=== PATIENT | female | born 1945 | race Native Hawaiian/Other Pacific Islander ===

== ENCOUNTER 2017-07-26 15:45 | Inpatient (IN) | payer MEDICARE ==
--- NOTE | 2017-07-26 16:46 | C.PDOC ---
Time Seen by Provider: 07/26/17 16:25 Chief Complaint (Nursing): Chest Pain Past Medical History Vital Signs: Last Vital Signs Temp 97.8 F 07/26/17 15:50 Pulse 105 H 07/26/17 15:50 Resp 18 07/26/17 15:50 BP 152/89 H 07/26/17 15:50 Pulse Ox 100 07/26/17 15:50 - Medical History PMH: HTN, Hypercholesterolemia - Social History Hx Alcohol Use: No Hx Substance Use: No - Immunization History Hx Tetanus Toxoid Vaccination: No Hx Influenza Vaccination: No Hx Pneumococcal Vaccination: No ED Course And Treatment O2 Sat by Pulse Oximetry: 100 Disposition - Disposition
--- NOTE | 2017-07-26 16:46 | C.PDOC ---
History Of Present Illness 72 yr old female referred to ER by her PMD, comes in with complaints of intermittent palpitations associated with near syncope for the past several months. Patient also reports of general weakness. Currently patient is asymptomatic, denies fever, chest pain, SOB, nausea, vomiting or headache. REFERRED BY PMD. INTERMIT PALPITATIONS ASSOC NEAR SYNCOPE X SEV MONTHS. CURRENTLY ASYMPT. +ASSOC GEN WEAKNESS. NO CP. EXAM NAD LUNGS NEG CV IRREG REG REMAINDER NEG Time Seen by Provider: 07/26/17 16:25 Chief Complaint (Nursing): Chest Pain History Per: Patient History/Exam Limitations: no limitations Onset/Duration Of Symptoms: Intermittent Episodes Past Medical History Reviewed: Historical Data, Nursing Documentation, Vital Signs Vital Signs: Last Vital Signs Temp 97.8 F 07/26/17 15:50 Pulse 80 07/26/17 16:55 Resp 18 07/26/17 15:50 BP 141/95 H 07/26/17 16:55 Pulse Ox 100 07/26/17 17:19 - Medical History PMH: HTN, Hypercholesterolemia Family History: States: No Known Family Hx - Social History Hx Alcohol Use: No Hx Substance Use: No - Immunization History Hx Tetanus Toxoid Vaccination: No Hx Influenza Vaccination: No Hx Pneumococcal Vaccination: No Review Of Systems Except As Marked, All Systems Reviewed And Found Negative. Constitutional: Positive for: Weakness (Generalized). Negative for: Fever Cardiovascular: Positive for: Palpitations. Negative for: Chest Pain Respiratory: Negative for: Shortness of Breath Gastrointestinal: Negative for: Nausea, Vomiting Neurological: Negative for: Headache Physical Exam - Physical Exam Appears: Non-toxic, No Acute Distress Skin: Warm, Dry, No Rash Head: Atraumatic, Normacephalic Cardiovascular: Rhythm Regular, Rhythm Irregular Respiratory: Normal Breath Sounds, No Rales, No Rhonchi, No Stridor, No Wheezing Extremity: Normal ROM, No Swelling Neurological/Psych: Oriented x3, Normal Speech, Normal Motor, Normal Sensation ED Course And Treatment - Laboratory Results Result Diagrams: 07/26/17 17:14 07/26/17 17:14 ECG: Interpreted By Me ECG Rhythm: Atrial Fibrillation Rate From EC (BPM) O2 Sat by Pulse Oximetry: 100 (RA) Pulse Ox Interpretation: Normal () - Radiology CXR: Interpreted by Me CXR Interpretation: Yes: No Acute Disease Progress - Re-Evaluation Re-evaluation Note: 07/26/17 17:02 D/W DR Juan TEE, WILL ADMIT. CONSULT DR MARCH - Data Reviewed Data Reviewed: Lab, Diagnostic imaging, EKG, Old records Medical Decision Making Medical Decision Making: PLAN: * CXR * EKG * Troponin * CBC * CMP * Lovenox SC Disposition Counseled Patient/Family Regarding: Studies Performed, Diagnosis - Disposition Disposition: HOSPITALIZED Disposition Time: 17:42 Condition: STABLE Forms: [facility] (German) - POA Present On Arrival: None - Clinical Impression Clinical Impression: New onset atrial fibrillation - Scribe Statement The provider has reviewed the documentation as recorded by the Judeibe Brandy Carpio Provider Attestation: All medical record entries made by the Scribe were at my direction and personally dictated by me. I have reviewed the chart and agree that the record accurately reflects my personal performance of the history, physical exam, medical decision making, and the department course for this patient. I have also personally directed, reviewed, and agree with the discharge instructions and disposition. Decision To Admit - Pt Status Changed To: Hospital Disposition Of: Inpatient - Admit Certification Admit to Inpatient:: After my assessment, the patient will require hospitalization for at least two midnights. This is because of the severity of symptoms shown, intensity of services needed, and/or the medical risk in this patient being treated as an outpatient. - InPatient: Physician Admission Certification: I certify that this patient requires 2 or more midnights of care for the following reason:: see note - . Bed Request Type: Telemetry Admitting Physician: Desmond Tee Patient Diagnosis: New onset atrial fibrillation
[2017-07-26] MEDS ORDERED: Enoxaparin 30 mg Syringe SC STA (16:53)
[2017-07-26 17:26] LABS: BASO # 0.1 K/uL (0.0-0.2); EOS # 0.2 K/uL (0.0-0.7); EOS % 2.5 % (0.0-4.0); HEMATOCRIT 42.4 % (34.0-47.0); LYMPH # 2.4 K/uL (1.0-4.3); MEAN CELL VOLUME 88.4 fL (81.0-99.0); MEAN CORPUSCULAR HEMOGLOBIN 30.1 pg (27.0-31.0); MEAN PLATELET VOLUME 7.4 fL (7.2-11.7); MONO # 0.5 K/uL (0.0-0.8); MONO % 8.1 % (0.0-10.0); NRBC % 0.1 % (0.0-2.0); RED CELL DISTRIBUTION WIDTH 13.1 % (11.5-14.5); WHITE BLOOD COUNT 6.5 K/uL (4.8-10.8)
[2017-07-26 17:34] LABS: ALKALINE PHOSPHATASE 125 U/L (38-126); ALT/SGPT 57 U/L (9-52); AST/SGOT 39 U/L (14-36); BILIRUBIN,TOTAL 0.7 mg/dL (0.2-1.3); BLOOD UREA NITROGEN 19 mg/dL (7-17); CALCIUM 8.6 mg/dl (8.6-10.4); CARBON DIOXIDE 28 mmol/L (22-30); CHLORIDE 104 mmol/L (98-107); GFR AFRICAN-AMERICAN > 60; GLUCOSE,RANDOM 76 mg/dL (65-105); POTASSIUM 4.2 mmol/L (3.6-5.2); SODIUM 140 mmol/L (132-148); TOTAL PROTEIN 8.9 g/dL (6.3-8.3)
[2017-07-26 17:38] LABS: ALB/GLOB RATIO 0.9 (1.0-2.1)
[2017-07-26] MEDS ORDERED: Enoxaparin 80 mg Syringe SC STA (17:38)
--- NOTE | 2017-07-26 17:40 | RAD ---
HISTORY: AFIB COMPARISON: None available. TECHNIQUE: Chest PA and lateral FINDINGS: Examination limited by habitus. LUNGS: Minimal atelectasis, left lung base. No focal consolidation. Please note that chest x-ray has limited sensitivity for the detection of pulmonary masses. PLEURA: No significant pleural effusion identified. No definite pneumothorax . CARDIOVASCULAR: Heart size appears top normal. Atherosclerotic calcifications of the aorta. OSSEOUS STRUCTURES: Degenerative changes. VISUALIZED UPPER ABDOMEN: Unremarkable. OTHER FINDINGS: None. IMPRESSION: Minimal atelectasis, left lung base.
[2017-07-26] MEDS ORDERED: Enoxaparin 80 mg Syringe ONE (17:52)
[2017-07-26] MEDS ORDERED: Home Med 1 UNIT (Atorvastatin [Lipitor] 10 MG) PO SCH (22:45)
--- NOTE | 2017-07-27 09:26 | CP.PCM.HP ---
History of Present Illness - History of Present Illness History of Present Illness: CC: Dizzy/ near syncope 89 y/o femalw wirt Eczema, HTN, & Hyperlipidemia. Patient noted occ dizziness x mths and one episode that she almost pass out. Pt seen in office and noted in At fib. Patient admitted. Present on Admission - Present on Admission Any Indicators Present on Admission: Yes History of DVT/PE: No History of Uncontrolled Diabetes: No Review of Systems - Review of Systems Systems not reviewed;Unavailable: Acuity of Condition - Constitutional Constitutional: absent: Excessive Sweating, Increased Appetite, Night Sweats, Snoring, Sleep Apnea, Weight Loss - EENT Eyes: absent: Change in Vision, Loss of Peripheral Vision, Sees Flashes, Loss of Vision Ears: Dizziness. absent: Ear Discharge, Disequilibrium Nose/Mouth/Throat: absent: Nasal Congestion, Change in Voice, Dysphagia - Cardiovascular Cardiovascular: Palpitations, Pedal Edema, Rapid Heart Rate. absent: Chest Pain at Rest, Dyspnea, Dyspnea on Exertion, Edema, Leg Edema, Orthopnea - Respiratory Respiratory: Cough. absent: Hemoptysis, Change in Mucous Color - Gastrointestinal Gastrointestinal: absent: Abdominal Pain, Change in Stool Character, Diarrhea, Dyspepsia - Genitourinary Genitourinary: Nocturia. absent: Urinary Urgency, Freq UTI, Bladder Distension - Musculoskeletal Musculoskeletal: absent: Abnormal Gait, Atrophy, Back Pain, Loss of Height, Myalgias, Tingling Past Patient History - Past Social History Smoking Status: Never Smoked - CARDIAC Hx Hypercholesterolemia: Yes Hx Hypertension: Yes - MUSCULOSKELETAL/RHEUMATOLOGICAL Hx Falls: No - PSYCHIATRIC Hx Substance Use: No - SURGICAL HISTORY Hx Surgeries: Yes Hx Section: Yes (X1) - ANESTHESIA Hx Anesthesia: Yes Hx Anesthesia Reactions: No Meds Allergies/Adverse Reactions: Allergies Allergy/AdvReac Type Severity Reaction Status Date / Time desai Allergy Severe ITCHING Verified 07/27/17 01:19 egg Allergy Severe ITCHING Verified 07/27/17 01:19 shellfish derived Allergy Severe ITCHING Verified 07/27/17 01:19 celecoxib [From Celebrex] Allergy Intermediate ITCHING Verified 07/27/17 01:19 Penicillins Allergy Mild ITCHING Verified 07/27/17 01:19 NUTS Allergy Severe ITCHING Uncoded 07/27/17 01:19 Physical Exam - Constitutional Appears: No Acute Distress - Eye Exam Eye Exam: Normal appearance - ENT Exam ENT Exam: Mucous Membranes Moist - Neck Exam Neck exam: Positive for: Full Rom. Negative for: Lymphadenopathy, Thyromegaly - Respiratory Exam Respiratory Exam: Clear to Auscultation Bilateral. absent: Rhonchi, Wheezes, Respiratory Distress - Cardiovascular Exam Cardiovascular Exam: +S1, +S2. absent: Gallop, REGULAR RHYTHM - GI/Abdominal Exam GI & Abdominal Exam: Soft. absent: Rebound, Tenderness - Extremities Exam Extremities exam: Positive for: full ROM, normal capillary refill. Negative for : calf tenderness, joint swelling Results - Vital Signs Recent Vital Signs: Last Vital Signs Temp 98.1 F 07/27/17 09:05 Pulse 97 H 07/27/17 09:05 Resp 20 07/27/17 09:05 BP 144/76 07/27/17 09:05 Pulse Ox 97 07/27/17 09:05 - Labs Result Diagrams: 07/26/17 17:14 07/26/17 17:14 Labs: Laboratory Results - last 24 hr 07/26/17 07/26/17 07/26/17 17:14 17:14 17:14 WBC 6.5 RBC 4.80 Hgb 14.4 Hct 42.4 MCV 88.4 MCH 30.1 MCHC 34.0 RDW 13.1 Plt Count 165 MPV 7.4 Neut % (Auto) 51.4 Lymph % (Auto) 37.0 [place] % (Auto) 8.1 Eos % (Auto) 2.5 Baso % (Auto) 1.0 Neut # 3.4 Lymph # 2.4 [place] # 0.5 Eos # 0.2 Baso # 0.1 PT 11.2 INR 1.0 APTT 33 Sodium 140 Potassium 4.2 Chloride 104 Carbon Dioxide 28 Anion Gap 13 BUN 19 H Creatinine 0.7 Est GFR ( Amer) > 60 Est GFR (Non-Af Amer) > 60 Random Glucose 76 Calcium 8.6 Total Bilirubin 0.7 AST 39 H ALT 57 H Alkaline Phosphatase 125 Troponin I < 0.0120 Total Protein 8.9 H Albumin 4.3 Globulin 4.6 H Albumin/Globulin Ratio 0.9 L TSH 3rd Generation 1.20 - EKG Data EKG Interpreted by: Myself - EKG Data When Compared to Previous EKG: Significant Changes (At Fibrillation, no ischemia ) Assessment & Plan - Assessment and Plan (Free Text) Assessment: New Onset At fib HTN, Hyperlipidemia For anticoagulation 2-$ echo done control BP
[2017-07-27] MEDS: Enoxaparin 60 mg Syringe SC SCH ×2 (10:54→22:35)
[2017-07-27 11:49] LABS: INR 1.1
--- NOTE | 2017-07-27 21:27 | CARD ---
APPROVED REPORT EXAM: Two-dimensional and M-mode echocardiogram with Doppler and color Doppler. Other Information Quality : GoodRhythm : INDICATION Atrial Fibrillation Cardiac Disease: CAD Chest Pain Syncope Palpitations RISK FACTORS Hypertension 2D DIMENSIONS IVSd0.9 (0.7-1.1cm)LVDd4.1 (3.9-5.9cm) PWd1.0 (0.7-1.1cm)LVDs2.3 (2.5-4.0cm) FS (%) 42.8 %LVEF (%)74.4 (>50%) M-Mode DIMENSIONS RVDd2.95 (2.1-3.2cm)Left Atrium (MM)4.12 (2.5-4.0cm) IVSd0.90 (0.7-1.1cm)Aortic Root2.32 (2.2-3.7cm) LVDd4.13 (4.0-5.6cm)Aortic Cusp Exc.1.66 (1.5-2.0cm) PWd1.01 (0.7-1.1cm)FS (%) 37 % LVDs2.60 (2.0-3.8cm)LVEF (%)67 (>50%) Mitral Valve MV E Dbxooyvf714.4cm/sE/A ratio0.0 TDI E/Lateral E'0.0E/Medial E'0.0 Tricuspid Valve TR Peak Puzqajcr113gj/sTR Peak Gr.67orCuBUYG72cxVr LEFT VENTRICLE The left ventricle is normal size. There is normal left ventricular wall thickness. The left ventricular function is normal. The left ventricular ejection fraction is within the normal range. There is normal LV segmental wall motion. RIGHT VENTRICLE The right ventricle is normal size. There is normal right ventricular wall thickness. The right ventricular systolic function is normal. ATRIA The left atrium is borderline dilated. AORTIC VALVE The aortic valve is severely thickened MITRAL VALVE Mitral regurgitation is mild to moderate. PULMONIC VALVE There is trace pulmonic valvular regurgitation. <Conclusion> The left ventricle is normal size. There is normal left ventricular wall thickness. The left ventricular function is normal. The left ventricular ejection fraction is within the normal range. There is normal LV segmental wall motion. The aortic valve is severely thickened Mitral regurgitation is mild to moderate.
--- NOTE | 2017-07-27 21:50 | CARD ---
APPROVED REPORT EKG Measurement Heart [id number] <Conclusion> Atrial fibrillation Abnormal ECG
--- NOTE | 2017-07-28 05:42 | CP.PCM.CON ---
History of Present Illness - History of Present Illness History of Present Illness: CC: palpitations chst pain HPI: 80 y/o [place] woman w/ hx of Eczema, HTN, & Hyperlipidemia. Patient noted occ dizziness for a few months with a near syncopal episode event. Pt was seen in office of PMD for mi-sternal chest pain radiating to right shoulder and back. EKG revealed Atrial fib. Review of Systems - Constitutional Constitutional: As Per HPI - EENT Nose/Mouth/Throat: absent: Epistaxis - Cardiovascular Cardiovascular: Chest Pain, Palpitations - Respiratory Respiratory: Dyspnea on Exertion - Gastrointestinal Gastrointestinal: absent: Abdominal Pain - Musculoskeletal Musculoskeletal: absent: Abnormal Gait - Neurological Neurological: Syncope. absent: Abnormal Gait Past Patient History - Past Social History Smoking Status: Never Smoked - CARDIAC Hx Hypercholesterolemia: Yes Hx Hypertension: Yes - MUSCULOSKELETAL/RHEUMATOLOGICAL Hx Falls: No - PSYCHIATRIC Hx Substance Use: No - SURGICAL HISTORY Hx Surgeries: Yes Hx Section: Yes (X1) - ANESTHESIA Hx Anesthesia: Yes Hx Anesthesia Reactions: No Meds Allergies/Adverse Reactions: Allergies Allergy/AdvReac Type Severity Reaction Status Date / Time desai Allergy Severe ITCHING Verified 07/27/17 01:19 egg Allergy Severe ITCHING Verified 07/27/17 01:19 shellfish derived Allergy Severe ITCHING Verified 07/27/17 01:19 celecoxib [From Celebrex] Allergy Intermediate ITCHING Verified 07/27/17 01:19 Penicillins Allergy Mild ITCHING Verified 07/27/17 01:19 NUTS Allergy Severe ITCHING Uncoded 07/27/17 01:19 - Medications Medications: Current Medications Enoxaparin Sodium (Lovenox) 60 mg SC Q12 [facility] Last Admin: 07/27/17 22:35 Dose: 60 mg Hydrochlorothiazide (Microzide) 12.5 mg PO DAILY [facility] Last Admin: 07/27/17 10:54 Dose: 12.5 mg Losartan Potassium (Cozaar) 100 mg PO DAILY [facility] Last Admin: 07/27/17 10:54 Dose: 100 mg Metoprolol Tartrate (Lopressor) 50 mg PO BIDCC [facility] Last Admin: 07/27/17 22:35 Dose: 50 mg Rosuvastatin Calcium (Crestor) 5 mg PO HS [facility] Last Admin: 07/27/17 22:35 Dose: 5 mg Physical Exam - Constitutional Appears: Non-toxic - Head Exam Head Exam: NORMAL INSPECTION - Eye Exam Eye Exam: absent: Scleral icterus Pupil Exam: NORMAL ACCOMODATION - ENT Exam ENT Exam: Mucous Membranes Moist - Neck Exam Neck exam: Positive for: Full Rom - Respiratory Exam Respiratory Exam: NORMAL BREATHING PATTERN - Cardiovascular Exam Cardiovascular Exam: REGULAR RHYTHM - GI/Abdominal Exam GI & Abdominal Exam: Soft. absent: Tenderness - Neurological Exam Neurological exam: Alert, Oriented x3 Results - Vital Signs Recent Vital Signs: Last Vital Signs Temp 97.6 F 07/28/17 04:46 Pulse 79 07/28/17 04:46 Resp 20 07/28/17 04:46 BP 100/68 07/28/17 04:46 Pulse Ox 96 07/28/17 04:46 - Labs Result Diagrams: 07/26/17 17:14 07/26/17 17:14 Labs: Laboratory Results - last 24 hr 07/26/17 07/27/17 17:14 11:19 PT 12.1 INR 1.1 Sodium 140 Potassium 4.2 Chloride 104 Carbon Dioxide 28 Anion Gap 13 BUN 19 H Creatinine 0.7 Est GFR ( Amer) > 60 Est GFR (Non-Af Amer) > 60 Random Glucose 76 Calcium 8.6 Total Bilirubin 0.7 AST 39 H ALT 57 H Alkaline Phosphatase 125 Troponin I < 0.0120 Total Protein 8.9 H Albumin 4.3 Globulin 4.6 H Albumin/Globulin Ratio 0.9 L TSH 3rd Generation 1.20 Assessment & Plan - Assessment and Plan (Free Text) Assessment: Chest pain - r/o CAD New onset Afib HTN Plan: ECHO Lexiscan Anticoagulation
[2017-07-28] MEDS ORDERED: Aminophylline 25 mg/ml Inj ONE (07:09)
--- NOTE | 2017-07-28 09:39 | CP.PCM.PN ---
Subjective - Date & Time of Evaluation Date of Evaluation: 07/28/17 Time of Evaluation: 09:30 - Subjective Subjective: Pt no complain; no cough, no SOB, no CP On Stress test scan Objective - Vital Signs/Intake and Output Vital Signs (last 24 hours): Temp Pulse Resp BP Pulse Ox 98.4 F 81 20 128/80 95 07/28/17 08:27 07/28/17 08:27 07/28/17 08:27 07/28/17 08:27 07/28/17 08:27 - Medications Medications: Current Medications Apixaban (Eliquis) 5 mg PO BID [facility] Enoxaparin Sodium (Lovenox) 60 mg SC Q12 [facility] Last Admin: 07/27/17 22:35 Dose: 60 mg Hydrochlorothiazide (Microzide) 12.5 mg PO DAILY [facility] Last Admin: 07/27/17 10:54 Dose: 12.5 mg Losartan Potassium (Cozaar) 100 mg PO DAILY [facility] Last Admin: 07/27/17 10:54 Dose: 100 mg Metoprolol Tartrate (Lopressor) 50 mg PO BIDCC [facility] Last Admin: 07/27/17 22:35 Dose: 50 mg Rosuvastatin Calcium (Crestor) 5 mg PO HS [facility] Last Admin: 07/27/17 22:35 Dose: 5 mg - Labs Labs: 07/26/17 17:14 07/26/17 17:14 PT 12.1 SECONDS (9.7-12.2) 07/27/17 11:19 INR 1.1 07/27/17 11:19 APTT 33 SECONDS (21-34) 07/26/17 17:14 - Constitutional Appears: In Acute Distress - Eye Exam Eye Exam: Normal appearance - ENT Exam ENT Exam: Mucous Membranes Moist - Neck Exam Neck Exam: Full ROM. absent: Lymphadenopathy, Normal Inspection - Respiratory Exam Respiratory Exam: Clear to Ausculation Bilateral. absent: Rales, Rhonchi, Wheezes - Cardiovascular Exam Cardiovascular Exam: +S1, +S2. absent: Gallop, REGULAR RHYTHM, JVD - GI/Abdominal Exam GI & Abdominal Exam: Soft. absent: Tenderness - Extremities Exam Extremities Exam: Full ROM, Normal Capillary Refill. absent: Calf Tenderness, Joint Swelling, Pedal Edema Assessment and Plan - Assessment and Plan (Free Text) Assessment: New Onset AF; HTN; Hyperlipidemia Cont work up/ meds for anticoagulation
[2017-07-28] MEDS ORDERED: Enoxaparin 40 mg Syringe SC SCH (10:00)
[2017-07-28 11:46] LABS: INR 1.2
[2017-07-28] MEDS: Enoxaparin 60 mg Syringe SC SCH ×2 (12:17→21:44)
--- NOTE | 2017-07-29 00:08 | CARD ---
APPROVED REPORT Protocol: LEXISCAN Test Type: LEXISCAN STRESS Test Indications: A FIB Target HR: 150 bpm Resting ECG: atrial fibrillation Resting Heart Rate: 90 bpm Resting Blood Pressure: 132/80mmHg submaximum (85%): 128 bpm TEST SUMMARY [id number]:02..1.086/.0. PREINFSNHYPERV.07:[id number]/80.0. INFUSIONDOSE 100:300.00.01.086/.0. [id number]:[id number]/80.0. PROCEDURE Pharmacologic stress testing was performed using 0.4mg per 5ml of regadenoson given intravenously over 7-10 seconds. Reversal agent aminophyline 100 mg, given intravenously for Headache. POST EXERCISE Reason for Termination: Protocol Completed Target HR: No Max HR: 86 bpm 80% of Maximum Predicted HR: 150 bpm Exercise duration: 00:30 min:sec, 0 Stage Exercise capacity: 1.0METs Max Blood Pressure: 132/80mmHg Blood Pressure response to exercise: normal resting BP - appropriate response Heart Rate response to exercise: appropriate Chest Pain: No, none Angina index: 0 Arrhythmia: Yes, atrial fibrillation ST Change: No, none from baseline Deviation: 0 mm INTERPRETATION Stress EKG Conclusion: NEGATIVE LEXISCAN STRESS TEST NORMAL BP RESPONSE TO LEXISCAN NUCLEAR STUDIES TO BE READ SEPARATELY EXAM: Myocardial Perfusion STRESS/REST Imaging Protocol The imaging protocol used to acquire images was Stress Tc-99m/rest Tc-99m 1 day Stress Spect myocardial perfusion imaging was performed in supine position 40 minutes following the injection of 13.2 mCi of Tc-99 Myoview. Gated Rest Spect was performed 40 minutes after intravenous 32.6 mCi Tc-99 Myoview injection. The images were gated to evaluate regional wall motion and calculate ventricular ejection fraction.Images were reconstructed using backfilter projection method in short horizontal and verticle long axis. Spect slices were generated. RESTING DATA EDV44.95wrQB5.90L/min ESV3.00mlMyocardial Mass90.00g Av. Heart Rate72.00bpm EF93.00% STRESS DATA EDV42.34onNM3.90L/min ESV8.00mlMyocardial Mass91.00g EF81.00% Regional WT score at stress:3.00 Regional WM score at stress:0.00 Summed WT score at stress:21.00 Av. Heart Rate85.00bpmSummed WM score at stress:0.00 LV Perf. Quant 17 Seg. SSS0.00 17 Seg. SRS1.00 17 Seg. SDS0.00 Stress Defect Extent (% LAD)0.00Rest Defect Extent (% LAD)0.00Rev. Defect Extent (% LAD)0.00 Stress Defect Extent (% LCX)0.00Rest Defect Extent (% LCX)11.30Rev. Defect Extent (% LCX)0.00 Stress Defect Extent (% RCA)0.00Rest Defect Extent (% RCA)0.00Rev. Defect Extent (% RCA)0.00 Stress Defect Extent (% DANYELL)0.00Rest Defect Extent (% DANYELL)2.00Rev. Defect Extent (% DANYELL)0.00 IMPRESSION Normal Myocardial Perfusion exercise stress study Left Ventricle LV Size/Shape: The left ventricle is normal size. LV Function:Left ventricle systolic function is normal. The Ejection Fraction is >70%. Regional Wall Motion:There is normal left ventricular wall motion. Metabolism/Perfusion Defects: There is no scan evidence of reversible ischemia noted. There are no perfusion/metabolism defects. Conclusion 1. There is no scan evidence of reversible ischemia noted. 2. Left ventricle systolic function is normal. 3. The Ejection Fraction is >70%.
[2017-07-29] MEDS: Enoxaparin 60 mg Syringe SC SCH (09:58)
[2017-07-29 16:22] VITALS: BP 124/76; PULSE 81; RESP 18; TEMP 98.7; O2SAT 98
--- NOTE | 2017-07-29 17:42 | CP.PCM.DIS ---
Provider - Provider Date of Admission: 07/26/17 17:43 Attending physician: Desmond Carrion MD Time Spent in preparation of Discharge (in minutes): 25 Diagnosis - Discharge Diagnosis (1) New onset atrial fibrillation Status: Acute (2) HTN (hypertension) Status: Chronic (3) Hyperlipemia Status: Chronic Hospital Course - Lab Results Lab Results: Most Recent Lab Values WBC 6.5 K/uL (4.8-10.8) 07/26/17 17:14 RBC 4.80 Mil/uL (3.80-5.20) 07/26/17 17:14 Hgb 14.4 g/dL (11.0-16.0) 07/26/17 17:14 Hct 42.4 % (34.0-47.0) 07/26/17 17:14 MCV 88.4 fL (81.0-99.0) 07/26/17 17:14 MCH 30.1 pg (27.0-31.0) 07/26/17 17:14 MCHC 34.0 g/dL (33.0-37.0) 07/26/17 17:14 RDW 13.1 % (11.5-14.5) 07/26/17 17:14 Plt Count 165 K/uL (130-400) 07/26/17 17:14 MPV 7.4 fL (7.2-11.7) 07/26/17 17:14 Neut % (Auto) 51.4 % (50.0-75.0) 07/26/17 17:14 Lymph % (Auto) 37.0 % (20.0-40.0) 07/26/17 17:14 [place] % (Auto) 8.1 % (0.0-10.0) 07/26/17 17:14 Eos % (Auto) 2.5 % (0.0-4.0) 07/26/17 17:14 Baso % (Auto) 1.0 % (0.0-2.0) 07/26/17 17:14 Neut # 3.4 K/uL (1.8-7.0) 07/26/17 17:14 Lymph # 2.4 K/uL (1.0-4.3) 07/26/17 17:14 [place] # 0.5 K/uL (0.0-0.8) 07/26/17 17:14 Eos # 0.2 K/uL (0.0-0.7) 07/26/17 17:14 Baso # 0.1 K/uL (0.0-0.2) 07/26/17 17:14 PT 24.0 SECONDS (9.7-12.2) H D 07/29/17 11:07 INR 2.0 D 07/29/17 11:07 APTT 33 SECONDS (21-34) 07/26/17 17:14 Sodium 140 mmol/L (132-148) 07/26/17 17:14 Potassium 4.2 mmol/L (3.6-5.2) 07/26/17 17:14 Chloride 104 mmol/L (98-107) 07/26/17 17:14 Carbon Dioxide 28 mmol/L (22-30) 07/26/17 17:14 Anion Gap 13 (10-20) 07/26/17 17:14 BUN 19 mg/dL (7-17) H 07/26/17 17:14 Creatinine 0.7 mg/dL (0.7-1.2) 07/26/17 17:14 Est GFR ( Amer) > 60 07/26/17 17:14 Est GFR (Non-Af Amer) > 60 07/26/17 17:14 Random Glucose 76 mg/dL (65-105) 07/26/17 17:14 Calcium 8.6 mg/dl (8.6-10.4) 07/26/17 17:14 Total Bilirubin 0.7 mg/dL (0.2-1.3) 07/26/17 17:14 AST 39 U/L (14-36) H 07/26/17 17:14 ALT 57 U/L (9-52) H 07/26/17 17:14 Alkaline Phosphatase 125 U/L (38-126) 07/26/17 17:14 Troponin I < 0.0120 ng/mL (0.00-0.120) 07/26/17 17:14 Total Protein 8.9 g/dL (6.3-8.3) H 07/26/17 17:14 Albumin 4.3 g/dL (3.5-5.0) 07/26/17 17:14 Globulin 4.6 gm/dL (2.2-3.9) H 07/26/17 17:14 Albumin/Globulin Ratio 0.9 (1.0-2.1) L 07/26/17 17:14 TSH 3rd Generation 1.20 mIU/L (0.46-4.68) 07/26/17 17:14 - Hospital Course Hospital Course: Admitted telemetry. Started on Coreg and levonox. ECHO and Stress done done. Seen by [facility] Dr. Katz. Advised to d/c home on Coumadin. - Date & Time of H&P Date of H&P: 07/29/17 Time of H&P: 17:42 Discharge Exam - Head Exam Head Exam: NORMAL INSPECTION Discharge Plan - Follow Up Plan Condition: STABLE Disposition: HOME/ ROUTINE Instructions: Warfarin (By mouth), Atrial Fibrillation (DC), Heart Healthy Diet (DC) Additional Instructions: Follow up in the office after 1 week for blood test. Continue medications at home. No Plavix and Aspirin. Prescribed Coumadin 5 mg PO daily Referrals: Wu Pereira MD [Staff Provider] - Desmond Carrion MD [Staff Provider] -
== END 2017-07-29 18:29 | disposition home or self-care (01) | DRG 310 ==
LOC: C.ER 15:45 → C.9E 17:43 → C.6T 23:18
PROVIDERS: ADMIT Internal Medicine; ATTEND Internal Medicine
DX: I48.91 Unspecified atrial fibrillation (principal); E78.00 Pure hypercholesterolemia, unspecified; I10 Essential (primary) hypertension; L30.9 Dermatitis, unspecified; R55 Syncope and collapse